=== PATIENT | male | born 1985 | race Caucasian/White ===

== ENCOUNTER 2016-09-26 11:12 | Emergency (ER) | payer BC, OTHER ==
[2016-09-26] MEDS ORDERED: SODIUM CHLORIDE 0.9% 1,000 ML ONE (13:01)
== END 2016-09-26 15:00 | disposition home or self-care (01) ==
LOC: ER 11:12
CPT/HCPCS: 36415; 74022; 80053; 81001; 83690; 85025; 87088; 96360; 96361